=== PATIENT | male | born 1955 | race Caucasian/White ===

== ENCOUNTER 2019-02-23 21:39 | Emergency (ER) | payer OTHER ==
[2019-02-23] MEDS ORDERED: Aspirin 81 MG Tab.Chew PO ONE (21:55)
[2019-02-23] MEDS ORDERED: Aspirin 81 MG Tab.Chew ONE (21:56)
[2019-02-23] MEDS ORDERED: Nitroglycerin 0.4 MG Tab.SL ONE (21:56)
[2019-02-23] MEDS ORDERED: Sodium Chloride 0.9% 10 ML Syringe FLUSH PRN (21:57)
[2019-02-23] MEDS ORDERED: Nitroglycerin 0.4 MG Tab.SL SL PRN (21:57)
--- NOTE | 2019-02-23 22:04 | EDM.PDOC ---
ED HPI GENERAL MEDICAL PROBLEM - General Chief Complaint: Chest Pain Stated Complaint: CHEST PAIN Time Seen by Provider: 02/23/19 21:40 Source of Information: Reports: Patient History Limitations: Reports: No Limitations - History of Present Illness INITIAL COMMENTS - FREE TEXT/NARRATIVE: 63 YO WM presents to ER by private car with 30 minutes of substernal chest pain. Pt reports he was sitting watching TV when pain began. Pt reports associated dizziness and palpitations. Pt denies any shortness of breath, no nausea/vomiting, no diaphoresis. Pt reports smoking history of 45 pack years. Pt denies any current medications. Pt denies HTN, diabetes, hyperlipidemia but states he has a strong FH of CAD. Duration: Minutes: (30) Location: Reports: Chest Quality: Reports: Pressure Severity: Moderate Improves with: Reports: None Worsens with: Reports: None Associated Symptoms: Reports: Chest Pain. Denies: Cough, Diaphoresis, Fever/ Chills, Nausea/Vomiting, Shortness of Breath, Syncope Mid-Sternal Chest Pain Score (Numeric/FACES): 4 - Related Data Allergies Allergy/AdvReac Type Severity Reaction Status Date / Time codeine Allergy Cannot Verified 02/23/19 21:58 Remember Penicillins Allergy Cannot Verified 02/23/19 21:58 Remember Home Meds: Home Meds Naproxen Sodium [Aleve] 220 mg PO ASDIRECTED PRN 02/23/19 [History] ED ROS GENERAL - Review of Systems Review Of Systems: See Below Constitutional: Reports: No Symptoms HEENT: Reports: No Symptoms Respiratory: Reports: No Symptoms Cardiovascular: Reports: Chest Pain, Lightheadedness Endocrine: Reports: No Symptoms GI/Abdominal: Reports: No Symptoms : Reports: No Symptoms Musculoskeletal: Reports: No Symptoms Skin: Reports: No Symptoms Neurological: Reports: No Symptoms Psychiatric: Reports: No Symptoms Hematologic/Lymphatic: Reports: No Symptoms Immunologic: Reports: No Symptoms ED EXAM, GENERAL - Physical Exam Exam: See Below Exam Limited By: No Limitations General Appearance: Alert, WD/WN, No Apparent Distress Head: Atraumatic, Normocephalic Neck: Normal Inspection, Supple, Non-Tender, Full Range of Motion Respiratory/Chest: No Respiratory Distress, Lungs Clear, Normal Breath Sounds, No Accessory Muscle Use, Chest Non-Tender Cardiovascular: Normal Peripheral Pulses, Regular Rate, Rhythm, No Edema, No Gallop, No JVD, No Murmur, No Rub GI/Abdominal: Normal Bowel Sounds, Soft, Non-Tender, No Organomegaly, No Distention, No Abnormal Bruit, No Mass Back Exam: Normal Inspection, Full Range of Motion, NT Extremities: Normal Inspection, Normal Range of Motion, Non-Tender, Normal Capillary Refill, No Pedal Edema Neurological: Alert, Oriented, CN II-XII Intact, Normal Cognition, Normal Gait, Normal Reflexes, No Motor/Sensory Deficits Psychiatric: Normal Affect, Normal Mood Skin Exam: Warm, Dry, Intact, Normal Color, No Rash Lymphatic: No Adenopathy EKG INTERPRETATION EKG Date: 02/23/19 Time: 21:43 Rhythm: NSR Rate (Beats/Min): 84 [place]: Normal P-Wave: Present QRS: Normal ST-T: Elevated QT: Normal Comparison: NA - No Prior EKG Course - Vital Signs Last Recorded V/S: Last Vital Signs Temp 35.8 C 02/23/19 21:45 Pulse 107 H 02/23/19 21:45 Resp 18 02/23/19 21:45 BP 168/98 H 02/23/19 21:45 Pulse Ox 97 02/23/19 21:45 - Orders/Labs/Meds Orders: Active Orders 24 hr Category Date Time Status Cardiac Monitoring [RC] . DIRECTED Care 02/23/19 21:57 Ordered EKG Documentation Completion [RC] ASDIRECTED Care 02/23/19 21:58 Ordered Peripheral IV Care [RC] . DIRECTED Care 02/23/19 21:58 Ordered Chest 1V Frontal [CR] Stat Exams 02/23/19 21:57 Ordered CBC WITH AUTO DIFF [HEME] Stat Lab 02/23/19 21:57 Ordered CK W CKMB [CHEM] Stat Lab 02/23/19 21:57 Ordered COMPREHENSIVE METABOLIC PN,CMP [CHEM] Stat Lab 02/23/19 21:57 Ordered INR,PT,PROTHROMBIN TIME [COAG] Stat Lab 02/23/19 21:57 Ordered PTT,PARTIAL THROMBOPLSTIN TIME [COAG] Stat Lab 02/23/19 21:57 Ordered TROPONIN I [CHEM] Stat Lab 02/23/19 21:57 Ordered Nitroglycerin [Nitrostat] Med 02/23/19 21:57 Active 0.4 mg SL Q5M PRN Sodium Chloride 0.9% [Saline Flush] Med 02/23/19 21:57 Ordered 10 ml FLUSH Q8HR PRN Peripheral IV Insertion Adult [OM.PC] Routine Oth 02/23/19 21:57 Ordered EKG 12 Lead [EK] Routine Ther 02/23/19 21:57 Ordered Medication Orders Nitroglycerin (Nitrostat) 0.4 mg SL Q5M PRN PRN Reason: Chest Pain Sodium Chloride (Saline Flush) 10 ml FLUSH Q8HR PRN PRN Reason: keep vein open Meds: Medications Generic Name Dose Route Start Last Admin Trade Name Freq PRN Reason Stop Dose Admin Nitroglycerin 0.4 mg 02/23/19 21:57 Nitrostat SL Q5M PRN Chest Pain Sodium Chloride 10 ml 02/23/19 21:57 Saline Flush FLUSH Q8HR PRN keep vein open Discontinued Medications Generic Name Dose Route Start Last Admin Trade Name Freq PRN Reason Stop Dose Admin Aspirin Confirm 02/23/19 21:56 02/23/19 22:04 Aspirin Administered 02/23/19 21:57 Not Given Dose 324 mg .ROUTE .STK-MED ONE Aspirin 324 mg 02/23/19 21:55 Aspirin PO 02/23/19 21:56 ONETIME ONE Nitroglycerin Confirm 02/23/19 21:56 02/23/19 22:04 Nitrostat Administered 02/23/19 21:57 Not Given Dose 0.4 mg .ROUTE .STK-MED ONE Departure - Departure Time of Disposition: 22:10 Disposition: DC/Tfer to Acute Hospital 02 Reason for Transfer *Q: Primary PCI Indicated Condition: Critical Clinical Impression: Acute myocardial infarction Qualifiers: Myocardial infarction type: ST elevation myocardial infarction Forms: ED Department Discharge, Interfacility Transfer EMTALA - My Orders Last 24 Hours: My Active Orders 02/23/19 21:57 Cardiac Monitoring [RC] . DIRECTED Chest 1V Frontal [CR] Stat CBC WITH AUTO DIFF [HEME] Stat CK W CKMB [CHEM] Stat COMPREHENSIVE METABOLIC PN,CMP [CHEM] Stat INR,PT,PROTHROMBIN TIME [COAG] Stat PTT,PARTIAL THROMBOPLSTIN TIME [COAG] Stat TROPONIN I [CHEM] Stat Nitroglycerin [Nitrostat] 0.4 mg SL Q5M PRN Sodium Chloride 0.9% [Saline Flush] 10 ml FLUSH Q8HR PRN Peripheral IV Insertion Adult [OM.PC] Routine EKG 12 Lead [EK] Routine 02/23/19 21:58 EKG Documentation Completion [RC] ASDIRECTED Peripheral IV Care [RC] . DIRECTED - Assessment/Plan Last 24 Hours: My Active Orders 02/23/19 21:57 Cardiac Monitoring [RC] . DIRECTED Chest 1V Frontal [CR] Stat CBC WITH AUTO DIFF [HEME] Stat CK W CKMB [CHEM] Stat COMPREHENSIVE METABOLIC PN,CMP [CHEM] Stat INR,PT,PROTHROMBIN TIME [COAG] Stat PTT,PARTIAL THROMBOPLSTIN TIME [COAG] Stat TROPONIN I [CHEM] Stat Nitroglycerin [Nitrostat] 0.4 mg SL Q5M PRN Sodium Chloride 0.9% [Saline Flush] 10 ml FLUSH Q8HR PRN Peripheral IV Insertion Adult [OM.PC] Routine EKG 12 Lead [EK] Routine 02/23/19 21:58 EKG Documentation Completion [RC] ASDIRECTED Peripheral IV Care [RC] . DIRECTED Assessment:: 1. STEMI Plan: 1. Transfer to [facility]- [facility] accepting 2. supportive care 3. nitro/ASA/O2/Brilinta 180mg PO QD 4. chest pain free at this time so Dr Conrad stated to hold throbolytics
[2019-02-23] MEDS ORDERED: Ticagrelor 90 MG Tab PO ONE (22:15)
[2019-02-23] MEDS ORDERED: Sodium Chloride 0.9% 1,000 ML IV SCH (22:20)
[2019-02-23 22:42] LABS: ANION GAP 23.8 mmol/L (5-15); CHLORIDE,CL 105 mmol/L (98-115); SODIUM,NA 147 mmol/L (136-145)
== END 2019-02-23 22:30 ==
LOC: KA.ED 21:39
DX: I21.3 ST elevation (STEMI) myocardial infarction of unspecified site (principal); Z88.0 Allergy status to penicillin; Z88.5 Allergy status to narcotic agent
CPT/HCPCS: 80053; 82550; 82553; 84484; 85025; 85610; 85730; 93005; 99285-25; A9270-GY

== ENCOUNTER 2019-04-11 13:59 | Emergency (ER) | payer OTHER ==
--- NOTE | 2019-04-11 14:34 | EDM.PDOC ---
ED HPI GENERAL MEDICAL PROBLEM - General Stated Complaint: SOB Time Seen by Provider: 04/11/19 14:12 Source of Information: Reports: Patient History Limitations: Reports: No Limitations - History of Present Illness INITIAL COMMENTS - FREE TEXT/NARRATIVE: Patient presents with dyspnea that is becoming more severe. 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 He denies chest tightness or pressure. 6 weeks ago he had an NM with stents placed. At that time he had chest tightness but not since the stents. He has smoked for 50+ years but has cut down quite a bit he says, used to be 3 ppd now less than 1 ppd. - Related Data Allergies Allergy/AdvReac Type Severity Reaction Status Date / Time codeine Allergy Cannot Verified 04/11/19 15:56 Remember Penicillins Allergy Cannot Verified 04/11/19 15:56 Remember Home Meds: Home Meds Acetaminophen [Tylenol] 650 mg PO Q4H PRN 04/11/19 [History] Aspirin 81 mg PO BID 04/11/19 [History] Cyanocobalamin (Vitamin B-12) [Vitamin B-12] 250 mcg PO DAILY 04/11/19 [History] Folic Acid 1 mg PO DAILY 04/11/19 [History] Metoprolol Tartrate 12.5 mg PO BID 04/11/19 [History] Nitroglycerin 0.4 mg SL Q5M PRN 04/11/19 [History] Thiamine HCl 100 mg PO DAILY 04/11/19 [History] Ticagrelor [Brilinta] 90 mg PO BID 04/11/19 [History] atorvaSTATin Calcium [Atorvastatin Calcium] 80 mg PO BEDTIME 04/11/19 [History] ED ROS GENERAL - Review of Systems Review Of Systems: See Below Constitutional: Denies: Fever, Weakness, Diaphoresis HEENT: Denies: Throat Pain, Vision Change Respiratory: Reports: Shortness of Breath. Denies: Cough Cardiovascular: Denies: Chest Pain, Lightheadedness, Syncope Endocrine: Reports: No Symptoms GI/Abdominal: Denies: Abdominal Pain, Vomiting : Reports: No Symptoms Musculoskeletal: Denies: Neck Pain, Shoulder Pain, Arm Pain, Back Pain, Hand Pain, Leg Pain Skin: Denies: Cyanosis, Jaundice, Mottled, Pallor, Diaphoresis Neurological: Denies: Confusion, Dizziness, Seizure, Syncope, Trouble Speaking, Difficulty Walking Psychiatric: Denies: Agitation, Anxiety, Confusion ED EXAM, GENERAL - Physical Exam Exam: See Below Exam Limited By: No Limitations General Appearance: Alert, WD/WN, No Apparent Distress Eye Exam: Bilateral Eye: EOMI, Normal Inspection, PERRL Ears: Normal External Exam, Hearing Grossly Normal Nose: Normal Inspection, No Blood Throat/Mouth: Normal Inspection, Normal Lips, Normal Voice, No Airway Compromise Head: Atraumatic, Normocephalic Neck: Normal Inspection, Supple, Non-Tender, Full Range of Motion. No: Carotid Bruit Respiratory/Chest: No Respiratory Distress, No Accessory Muscle Use, Other ( lungs sound pretty good, just slight wheeze left middle lung) Cardiovascular: Normal Peripheral Pulses, Regular Rate, Rhythm, No Edema, No Gallop, No JVD, No Murmur Peripheral Pulses: 2+: Carotid (L), Carotid (R), Radial (L), Radial (R), Posterior Tibial (L), Posterior Tibial (R) GI/Abdominal: Normal Bowel Sounds, Soft, Non-Tender, No Organomegaly, No Distention Back Exam: Normal Inspection, Full Range of Motion Extremities: Normal Inspection, Normal Range of Motion, Non-Tender, No Pedal Edema Neurological: Alert, Oriented, Normal Cognition, No Motor/Sensory Deficits Psychiatric: Normal Affect, Normal Mood Skin Exam: Warm, Dry, Intact, Normal Color, No Rash Course - Orders/Labs/Meds Orders: Active Orders 24 hr Category Date Time Status EKG Documentation Completion [RC] ASDIRECTED Care 04/11/19 14:27 Ordered RT Aerosol Therapy [RC] ASDIRECTED Care 04/11/19 15:21 Ordered EKG 12 Lead [EK] Routine Ther 04/11/19 14:26 Ordered Labs: Laboratory Tests 04/11/19 04/11/19 Range/Units 14:34 14:34 WBC 4.47 L (5.00-10.00) 10^3/uL RBC 4.38 L (4.50-6.00) 10^6/uL Hgb 15.4 (13.0-17.0) g/dL Hct 45.2 (40.0-52.0) % MCV 103.2 H (82.0-92.0) fL MCH 35.2 H (27.0-31.0) pg MCHC 34.1 (32.0-36.0) g/dL RDW 14.4 (11.5-14.5) % Plt Count 133 L (150-400) 10^3/uL MPV 11.2 H (7.4-10.4) fL Immature Gran % (Auto) 0.0 (0.0-5.0) % Neut % (Auto) 57.9 (50.0-70.0) % Lymph % (Auto) 21.0 (20.0-40.0) % [place] % (Auto) 14.1 H (2.0-8.0) % Eos % (Auto) 6.3 H (1.0-3.0) % Baso % (Auto) 0.7 (0.0-1.0) % Immature Gran # (Auto) 0.00 (0.00-0.50) 10^3/uL Neut # (Auto) 2.59 (2.50-7.00) 10^3/uL Lymph # (Auto) 0.94 L (1.00-4.00) 10^3/uL [place] # (Auto) 0.63 (0.10-0.80) 10^3/uL Eos # (Auto) 0.28 (0.10-0.30) 10^3/uL Baso # (Auto) 0.03 (0.00-0.10) 10^3/uL Sodium 146 H (136-145) mmol/L Potassium 4.8 (3.3-5.3) mmol/L Chloride 109 (98-115) mmol/L Carbon Dioxide 27.5 (21.0-32.0) mmol/L Anion Gap 14.3 (5-15) mmol/L BUN 13 (6-25) mg/dL Creatinine 0.92 (0.51-1.17) mg/dL Est Cr Clr Drug Dosing TNP Estimated GFR (MDRD) > 60 mL/min Glucose 95 (75 - 99) mg/dL Calcium 9.1 (8.7-10.3) mg/dL Troponin I 0.05 (0.00-0.070) ng/mL Meds: Medications Discontinued Medications Generic Name Dose Route Start Last Admin Trade Name Freq PRN Reason Stop Dose Admin Albuterol/Ipratropium 3 ml 04/11/19 15:21 04/11/19 15:24 Duoneb 3.0-0.5 Mg/3 Ml NEB 04/11/19 15:22 3 ml ONETIME ONE Administration Albuterol/Ipratropium Confirm 04/11/19 15:22 Duoneb 3.0-0.5 Mg/3 Ml Administered 04/11/19 15:23 Dose 3 ml .ROUTE .STK-MED ONE Aspirin 324 mg 04/11/19 14:26 04/11/19 14:40 Aspirin PO 04/11/19 14:27 324 mg ONETIME ONE Administration - Re-Assessments/Exams Free Text/Narrative Re-Assessment/Exam: 04/11/19 15:22 EKG shows no acute change. Trop is 0.05 CXR shows no infiltrates. 04/11/19 15:54 Duoneb provided significant improvement in activity tolerance (eg. walking halls in hospital) today. I discussed this with his PCP, CHARLIE Beth who advised starting on Duoneb and Pulmicort nebs and following with her in clinic on Wednesday. Discussed findings and plan with patient who agrees. Pt discharged to home in stable condition. Departure - Departure Time of Disposition: 15:50 Disposition: Home, Self-Care 01 Condition: Good Clinical Impression: COPD (chronic obstructive pulmonary disease) Qualifiers: COPD type: COPD with acute exacerbation Qualified Code(s): J44.1 - Chronic obstructive pulmonary disease with (acute) exacerbation - Discharge Information Instructions: How to Use a Nebulizer, Adult Referrals: Ceci Velasquez PA-C [Primary Care Provider] - Additional Instructions: 1. Drink 8 cups of water daily. 2. Use the Duoneb and Pulmicort neb as directed. 3. Follow up with Ceci in clinic on Wednesday. Call to schedule. 4. Return to ER as needed. - My Orders Last 24 Hours: My Active Orders 04/11/19 14:26 EKG 12 Lead [EK] Routine 04/11/19 14:27 EKG Documentation Completion [RC] ASDIRECTED 04/11/19 15:21 RT Aerosol Therapy [RC] ASDIRECTED - Assessment/Plan Last 24 Hours: My Active Orders 04/11/19 14:26 EKG 12 Lead [EK] Routine 04/11/19 14:27 EKG Documentation Completion [RC] ASDIRECTED 04/11/19 15:21 RT Aerosol Therapy [RC] ASDIRECTED
[2019-04-11] MEDS: Aspirin 81 MG Tab.Chew PO ONE (14:40)
--- NOTE | 2019-04-11 15:04 | CR ---
[id number] RAD/RAD Chest PA And Lateral EXAM: RAD Chest PA And Lateral INDICATION: DYSPNEA. COMPARISON: August 11, 2018. DISCUSSION: Cardiomediastinal silhouette is normal in size and contour. No infiltrate, effusion, pneumothorax, or edema. Pulmonary hyperinflation. IMPRESSION: No acute cardiopulmonary abnormality. Norm Emerson DO 04/11/19 1502 Thank you for allowing us to participate in the care of your patient.
[2019-04-11 15:10] LABS: ANION GAP 14.3 mmol/L (5-15); CHLORIDE,CL 109 mmol/L (98-115); SODIUM,NA 146 mmol/L (136-145)
[2019-04-11] MEDS: Albuterol/Ipratropium 3.0-0.5 MG/3 ML Neb Soln NEB ONE (15:24)
[2019-04-11] MEDS: Albuterol/Ipratropium 3.0-0.5 MG/3 ML Neb Soln ONE (15:30)
== END 2019-04-11 16:05 | disposition home or self-care (01) ==
LOC: KA.ED 13:59
DX: J44.1 Chronic obstructive pulmonary disease with (acute) exacerbation (principal); Z88.5 Allergy status to narcotic agent; Z88.0 Allergy status to penicillin; Z79.899 Other long term (current) drug therapy; Z79.82 Long term (current) use of aspirin
CPT/HCPCS: 36415; 71046; 80048; 84484; 85025; 93005; 94640; 99285-25; A9270-GY; J7620-GY

== ENCOUNTER 2019-11-13 08:10 | Emergency (ER) | payer OTHER ==
[2019-11-13] MEDS ORDERED: Sodium Chloride 0.9% 10 ML Syringe FLUSH PRN (08:22)
[2019-11-13] MEDS ORDERED: GI Cocktail 45 ML BOTTLE PO ONE (08:40)
--- NOTE | 2019-11-13 08:48 | EDM.PDOC ---
ED HPI GENERAL MEDICAL PROBLEM - General Chief Complaint: Chest Pain Stated Complaint: CHEST PAIN Time Seen by Provider: 11/13/19 08:31 Source of Information: Reports: Patient History Limitations: Reports: No Limitations - History of Present Illness INITIAL COMMENTS - FREE TEXT/NARRATIVE: Patient presents with chest pain that started at 5:30 pm while watching a football game last night and bothered him all night. This morning he called the clinic to make an appointment there and was told he should go to ER. He describes the pain as in the same area as when he had a heart attack last January but this feels like a really bad heartburn, whereas last January it felt very tight. He ended up with two stents. He says he smokes 1.5 ppd and typically drink 6 beers/day although last evening with the game he drank 12-pack and a half as well as another beer this morning. Since the DC he is taking Brilinta. chest pain Pain Score (Numeric/FACES): 2 - Related Data Allergies Allergy/AdvReac Type Severity Reaction Status Date / Time codeine Allergy Cannot Verified 11/13/19 08:21 Remember Penicillins Allergy Cannot Verified 11/13/19 08:21 Remember Home Meds: Home Meds Acetaminophen [Tylenol] 650 mg PO Q4H PRN 04/11/19 [History] Aspirin 81 mg PO DAILY 04/11/19 [History] Cyanocobalamin (Vitamin B-12) [Vitamin B-12] 250 mcg PO DAILY 04/11/19 [History] Folic Acid 1 mg PO DAILY 04/11/19 [History] Nitroglycerin 0.4 mg SL Q5M PRN 04/11/19 [History] Thiamine HCl 100 mg PO DAILY 04/11/19 [History] Ticagrelor [Brilinta] 90 mg PO DAILY 04/11/19 [History] Past Medical History HEENT History: Reports: Impaired Vision Other HEENT History: glasses Cardiovascular History: Reports: DC Respiratory History: Reports: Other (See Below) Other Respiratory History: used to smoke 3 packs a day - Past Surgical History Cardiovascular Surgical History: Reports: Coronary Artery Stent Social & Family History - Family History Family Medical History: Noncontributory ED ROS GENERAL - Review of Systems Review Of Systems: See Below Constitutional: Denies: Fever, Chills, Weakness, Fatigue, Diaphoresis HEENT: Denies: Ear Pain, Throat Pain, Vision Change Respiratory: Reports: Shortness of Breath Cardiovascular: Reports: Chest Pain. Denies: Lightheadedness, Syncope GI/Abdominal: Denies: Abdominal Pain, Diarrhea, Vomiting : Denies: Dysuria, Flank Pain Musculoskeletal: Denies: Neck Pain, Shoulder Pain, Arm Pain, Back Pain, Hand Pain, Leg Pain, Foot Pain Skin: Denies: Cyanosis, Jaundice, Mottled, Pallor, Diaphoresis Neurological: Denies: Confusion, Dizziness, Headache, Seizure, Syncope, Trouble Speaking, Difficulty Walking Psychiatric: Denies: Agitation, Anxiety, Confusion ED EXAM, GENERAL - Physical Exam Exam: See Below Exam Limited By: No Limitations General Appearance: Alert, WD/WN, No Apparent Distress Eye Exam: Bilateral Eye: EOMI, Normal Inspection, PERRL Ears: Normal External Exam, Hearing Grossly Normal Nose: Normal Inspection, No Blood Throat/Mouth: Normal Inspection, Normal Lips, Normal Voice, No Airway Compromise Head: Atraumatic, Normocephalic Neck: Normal Inspection, Supple, Non-Tender, Full Range of Motion. No: Carotid Bruit Respiratory/Chest: No Respiratory Distress, Lungs Clear, Normal Breath Sounds Cardiovascular: Normal Peripheral Pulses, Regular Rate, Rhythm, No Edema, No Gallop, No JVD, No Murmur GI/Abdominal: Soft, Non-Tender, No Organomegaly, No Distention Back Exam: Normal Inspection, Full Range of Motion. No: CVA Tenderness (L), CVA Tenderness (R) Extremities: Normal Inspection, Normal Range of Motion, Non-Tender, No Pedal Edema Neurological: Alert, Oriented, Normal Cognition, No Motor/Sensory Deficits Psychiatric: Normal Affect, Normal Mood Skin Exam: Warm, Dry, Intact, Normal Color, No Rash Course - Vital Signs Last Recorded V/S: Last Vital Signs Temp 97.1 F 11/13/19 08:15 Pulse 93 11/13/19 09:29 Resp 22 H 11/13/19 09:29 BP 118/75 11/13/19 09:29 Pulse Ox 92 L 11/13/19 09:29 - Orders/Labs/Meds Orders: Active Orders 24 hr Category Date Time Status EKG Documentation Completion [RC] ASDIRECTED Care 11/13/19 08:22 Active Peripheral IV Care [RC] . DIRECTED Care 11/13/19 08:22 Active Nitroglycerin [Nitrostat] Med 11/13/19 09:08 Ordered 0.4 mg SL Q5M PRN Sodium Chloride 0.9% [Saline Flush] Med 11/13/19 08:22 Active 10 ml FLUSH Q8HR PRN Peripheral IV Insertion Adult [OM.PC] Routine Oth 11/13/19 08:22 Ordered Medication Orders Nitroglycerin (Nitrostat) 0.4 mg SL Q5M PRN PRN Reason: Chest Pain Last Admin: 11/13/19 09:11 Dose: 0.4 mg Sodium Chloride (Saline Flush) 10 ml FLUSH Q8HR PRN PRN Reason: keep vein open Last Admin: 11/13/19 08:30 Dose: 10 ml Labs: Laboratory Tests 11/13/19 11/13/19 11/13/19 Range/Units 08:00 08:30 08:30 WBC 7.84 (5.00-10.00) 10^3/uL RBC 4.36 L (4.50-6.00) 10^6/uL Hgb 15.2 (13.0-17.0) g/dL Hct 45.2 (40.0-52.0) % MCV 103.7 H (82.0-92.0) fL MCH 34.9 H (27.0-31.0) pg MCHC 33.6 (32.0-36.0) g/dL RDW 13.5 (11.5-14.5) % Plt Count 119 L (150-400) 10^3/uL MPV 11.7 H (7.4-10.4) fL Immature Gran % (Auto) 0.1 (0.0-5.0) % Neut % (Auto) 62.7 (50.0-70.0) % Lymph % (Auto) 19.6 L (20.0-40.0) % [place] % (Auto) 11.1 H (2.0-8.0) % Eos % (Auto) 5.9 H (1.0-3.0) % Baso % (Auto) 0.6 (0.0-1.0) % Immature Gran # (Auto) 0.01 (0.00-0.50) 10^3/uL Neut # (Auto) 4.91 (2.50-7.00) 10^3/uL Lymph # (Auto) 1.54 (1.00-4.00) 10^3/uL [place] # (Auto) 0.87 H (0.10-0.80) 10^3/uL Eos # (Auto) 0.46 H (0.10-0.30) 10^3/uL Baso # (Auto) 0.05 (0.00-0.10) 10^3/uL Sodium 140 (136-145) mmol/L Potassium 3.6 (3.3-5.3) mmol/L Chloride 105 (98-115) mmol/L Carbon Dioxide 22.8 (21.0-32.0) mmol/L Anion Gap 15.8 H (5-15) mmol/L BUN 8 (6-25) mg/dL Creatinine 0.69 (0.51-1.17) mg/dL Est Cr Clr Drug Dosing 111.00 mL/min Estimated GFR (MDRD) > 60 mL/min Glucose 85 (75 - 99) mg/dL Calcium 8.3 L (8.7-10.3) mg/dL Total Bilirubin 0.7 (0.2-1.0) mg/dL AST 34 (15-37) U/L ALT 43 (12-78) U/L Alkaline Phosphatase 64 (46-116) IU/L Troponin I 0.07 (0.00-0.070) ng/mL Total Protein 7.5 (6.4-8.2) g/dL Albumin 3.81 (3.00-4.80) g/dL Ethyl Alcohol 223 H* (NONE DETECTED) mg/dL Meds: Medications Generic Name Dose Route Start Last Admin Trade Name Freq PRN Reason Stop Dose Admin Nitroglycerin 0.4 mg 11/13/19 09:08 11/13/19 09:11 Nitrostat SL 0.4 mg Q5M PRN Administration Chest Pain Sodium Chloride 10 ml 11/13/19 08:22 11/13/19 08:30 Saline Flush FLUSH 10 ml Q8HR PRN Administration keep vein open Discontinued Medications Generic Name Dose Route Start Last Admin Trade Name Freq PRN Reason Stop Dose Admin Al Hydroxide/Mg Hydroxide 45 ml 11/13/19 08:40 11/13/19 09:01 Gi Cocktail PO 11/13/19 08:41 45 ml ONETIME ONE Administration - Re-Assessments/Exams Free Text/Narrative Re-Assessment/Exam: 11/13/19 09:09 Pain is 90% gone after the GI cocktail patient says. EKG looks good. I see a 1 mm elevation in S-T segment at lead V3. Still waiting on troponin which should be adequate since pain started 15 hours prior. 11/13/19 10:54 Troponin is 0.07. I discussed case with Dr. Patino, car dryer at [facility] who says/confirms it is not cardiac if troponin is that low after 15 hours. I discussed findings and recommendations with patient. He continues to be completely pain free. I also informed him that he needs to get a ride to leave since his alcohol level is too high. He has tried to call his but says if she isn't available he can walk to where he is going. I'm not sure how far that is but temperatures outside today are at least better than the past few days. Will encourage him to get ride although he drove himself here. Departure - Departure Time of Disposition: 10:54 Disposition: Home, Self-Care 01 Condition: Good Clinical Impression: Heartburn Alcohol intoxication Qualifiers: Complication of substance-induced condition: uncomplicated Qualified Code(s): F10.920 - Alcohol use, unspecified with intoxication, uncomplicated Instructions: Heartburn, [id number] Referrals: Nuris Reyes MD [Primary Care Provider] - Forms: ED Department Discharge, ED Return to Work/School Form Additional Instructions: 1. No driving for at least 12 hours. 2. Drink 8 cups of water daily. 3. Follow up with DR. Watkins within 48 hours for recheck, sooner if any worsening or other problems. Sepsis Event Note - Focused Exam Vital Signs: Vital Signs Temp Pulse Resp BP BP Pulse Ox 11/13/19 09:29 93 22 H 118/75 92 L 11/13/19 09:21 100 110/57 L 11/13/19 09:11 135/78 11/13/19 09:02 87 15 135/78 96 11/13/19 08:45 83 15 147/74 H 94 L 11/13/19 08:30 82 16 145/93 H 95 11/13/19 08:15 97.1 F 82 22 H 142/85 H 97 Date Exam was Performed: 11/13/19 Time Exam was Performed: 09:59 - My Orders Last 24 Hours: My Active Orders 11/13/19 08:22 EKG Documentation Completion [RC] ASDIRECTED Peripheral IV Care [RC] . DIRECTED Sodium Chloride 0.9% [Saline Flush] 10 ml FLUSH Q8HR PRN Peripheral IV Insertion Adult [OM.PC] Routine 11/13/19 09:08 Nitroglycerin [Nitrostat] 0.4 mg SL Q5M PRN - Assessment/Plan Last 24 Hours: My Active Orders 11/13/19 08:22 EKG Documentation Completion [RC] ASDIRECTED Peripheral IV Care [RC] . DIRECTED Sodium Chloride 0.9% [Saline Flush] 10 ml FLUSH Q8HR PRN Peripheral IV Insertion Adult [OM.PC] Routine 11/13/19 09:08 Nitroglycerin [Nitrostat] 0.4 mg SL Q5M PRN
--- NOTE | 2019-11-13 08:54 | CR ---
[id number] RAD/RAD Chest PA or AP 1V EXAM: SINGLE VIEW CHEST. INDICATION: CHEST PAIN COMPARISON: CORRELATION IS MADE WITH THE EXAM OF MAY 29, 2019 FINDINGS: The lungs are clear and slightly hyperaerated The cardiomediastinal contour is stable IMPRESSION: AIRWAY DISEASE Brennen Lindquist MD 11/13/19 0853 Thank you for allowing us to participate in the care of your patient.
[2019-11-13] MEDS ORDERED: Nitroglycerin 0.4 MG Tab.SL SL PRN (09:08)
[2019-11-13 09:19] LABS: ANION GAP 15.8 mmol/L (5-15); CHLORIDE,CL 105 mmol/L (98-115); SODIUM,NA 140 mmol/L (136-145)
== END 2019-11-13 11:10 | disposition home or self-care (01) ==
LOC: KA.ED 08:10
DX: R12 Heartburn (principal); F10.120 Alcohol abuse with intoxication, uncomplicated; I25.2 Old myocardial infarction; Z95.5 Presence of coronary angioplasty implant and graft; F17.210 Nicotine dependence, cigarettes, uncomplicated; Z88.0 Allergy status to penicillin; Z88.5 Allergy status to narcotic agent; Y90.7 Blood alcohol level of 200-239 mg/100 ml
CPT/HCPCS: 36415; 71045; 80053; 84484; 85025; 93005; 99285-25; A9270-GY; G0480

== ENCOUNTER 2020-02-26 08:15 | Emergency (ER) | payer OTHER ==
[2020-02-26] MEDS ORDERED: Aspirin 81 MG Tab.Chew PO ONE (08:25)
[2020-02-26] MEDS ORDERED: Sodium Chloride 0.9% 10 ML Syringe FLUSH PRN (08:26)
--- NOTE | 2020-02-26 08:56 | EDM.PDOC ---
ED HPI GENERAL MEDICAL PROBLEM - General Chief Complaint: Chest Pain Time Seen by Provider: 02/26/20 08:35 Source of Information: Reports: Patient History Limitations: Reports: No Limitations - History of Present Illness INITIAL COMMENTS - FREE TEXT/NARRATIVE: Patient presents with a feeling of heart pounding that started about 50 minutes ago (0750). He had just gotten to work. He says now the feeling is gone but he feels exhausted. Yesterday he felt fine and did quite a bit of yard work ( raking, weed-eating). One year ago he had an OH that started with pressure in the chest and also felt heart pounding similar to today. Today there was no pressure. He took Brilinta for 10 months but stopped two months ago due to nosebleeds without informing his doctor. He has nitro but has never used it. He reduced tobacco use but still smokes 1 ppd (50 years). We gave ASA 324mg on ER arrival. - Related Data Allergies Allergy/AdvReac Type Severity Reaction Status Date / Time codeine Allergy Cannot Verified 02/26/20 08:32 Remember Penicillins Allergy Cannot Verified 02/26/20 08:32 Remember Home Meds: Home Meds Acetaminophen [Tylenol] 325 - 650 mg PO Q4H PRN 04/11/19 [History] Aspirin 81 mg PO DAILY 04/11/19 [History] Cyanocobalamin (Vitamin B-12) [Vitamin B-12] 250 mcg PO DAILY 04/11/19 [History] Folic Acid 1 mg PO DAILY 04/11/19 [History] Nitroglycerin 0.4 mg SL Q5M PRN 04/11/19 [History] Thiamine HCl 100 mg PO DAILY 04/11/19 [History] Escitalopram Oxalate [Lexapro] 10 mg PO DAILY 02/26/20 [History] Metoprolol Tartrate 12.5 mg PO BID 02/26/20 [History] atorvaSTATin [Lipitor] 80 mg PO BEDTIME 02/26/20 [History] Past Medical History HEENT History: Reports: Impaired Vision Other HEENT History: glasses Cardiovascular History: Reports: OH Respiratory History: Reports: Other (See Below) Other Respiratory History: used to smoke 3 packs a day Psychiatric History: Reports: Addiction Hematologic History: Reports: B12 Deficiency, Folic Acid - Past Surgical History Cardiovascular Surgical History: Reports: Coronary Artery Stent Social & Family History - Family History Family Medical History: Noncontributory - Tobacco Use Smoking Status *Q: Current Every Day Smoker Years of Tobacco use: 50 Packs/Tins Daily: 1 - Caffeine Use Caffeine Use: Reports: Coffee - Alcohol Use Days Per Week of Alcohol Use: 7 Number of Drinks Per Day: 6 Total Drinks Per Week: 42 Date of Last Drink: 02/26/20 - Recreational Drug Use Recreational Drug Use: Yes Drug Use in Last 12 Months: No Recreational Drug Type: Reports: Marijuana/Hashish ED ROS GENERAL - Review of Systems Review Of Systems: See Below Constitutional: Reports: Fatigue. Denies: Fever, Chills, Malaise, Weakness, Diaphoresis HEENT: Denies: Ear Pain, Throat Pain, Vision Change Respiratory: Reports: Cough (cough), Sputum (a little the last few months). Denies: Shortness of Breath Cardiovascular: Reports: Palpitations. Denies: Chest Pain, Lightheadedness, Syncope Endocrine: Reports: Fatigue GI/Abdominal: Denies: Abdominal Pain, Nausea, Vomiting : Denies: Dysuria, Flank Pain Musculoskeletal: Denies: Neck Pain, Shoulder Pain, Arm Pain, Back Pain, Hand Pain Skin: Denies: Cyanosis, Jaundice, Mottled, Pallor, Diaphoresis Neurological: Denies: Confusion, Dizziness, Headache, Seizure, Syncope, Trouble Speaking, Difficulty Walking Psychiatric: Denies: Agitation, Anxiety, Confusion ED EXAM, GENERAL - Physical Exam Exam: See Below Exam Limited By: No Limitations General Appearance: Alert, WD/WN, No Apparent Distress Eye Exam: Bilateral Eye: EOMI, Normal Inspection, PERRL Ears: Normal External Exam, Hearing Grossly Normal Nose: Normal Inspection, No Blood Throat/Mouth: Normal Inspection, Normal Lips, Normal Voice, No Airway Compromise Head: Atraumatic, Normocephalic Neck: Normal Inspection, Supple, Non-Tender, Full Range of Motion Respiratory/Chest: No Respiratory Distress, Lungs Clear, Normal Breath Sounds, No Accessory Muscle Use Cardiovascular: Regular Rate, Rhythm, No Murmur Peripheral Pulses: 0: Radial (L) (cut left wrist badly several years ago in a glass aquarium that severed most of the vessels), 2+: Carotid (L), Carotid (R), Radial (R) GI/Abdominal: Normal Bowel Sounds, Soft, Non-Tender, No Organomegaly, No Distention Back Exam: Normal Inspection, Full Range of Motion Extremities: Normal Inspection, Normal Range of Motion Neurological: Alert, Oriented, Normal Cognition, No Motor/Sensory Deficits Psychiatric: Normal Affect, Normal Mood Skin Exam: Warm, Dry, Intact, Normal Color, No Rash Course - Vital Signs Last Recorded V/S: Last Vital Signs Temp 96.4 F L 02/26/20 08:27 Pulse 81 02/26/20 08:27 Resp 27 H 02/26/20 08:27 BP 168/77 H 02/26/20 08:27 Pulse Ox 98 02/26/20 08:27 - Orders/Labs/Meds Orders: Active Orders 24 hr Category Date Time Status EKG Documentation Completion [RC] ASDIRECTED Care 02/26/20 08:26 Active Peripheral IV Care [RC] . DIRECTED Care 02/26/20 08:26 Active Sodium Chloride 0.9% [Saline Flush] Med 02/26/20 08:26 Active 10 ml FLUSH Q8HR PRN Peripheral IV Insertion Adult [OM.PC] Routine Oth 02/26/20 08:26 Ordered Medication Orders Sodium Chloride (Saline Flush) 10 ml FLUSH Q8HR PRN PRN Reason: keep vein open Labs: Laboratory Tests 02/26/20 02/26/20 02/26/20 Range/Units 08:25 08:25 12:40 WBC 5.53 (5.00-10.00) 10^3/uL RBC 4.54 (4.50-6.00) 10^6/uL Hgb 15.9 (13.0-17.0) g/dL Hct 46.4 (40.0-52.0) % MCV 102.2 H (82.0-92.0) fL MCH 35.0 H (27.0-31.0) pg MCHC 34.3 (32.0-36.0) g/dL RDW 13.0 (11.5-14.5) % Plt Count 116 L (150-400) 10^3/uL MPV 11.9 H (7.4-10.4) fL Immature Gran % (Auto) 0.0 (0.0-5.0) % Neut % (Auto) 56.9 (50.0-70.0) % Lymph % (Auto) 25.5 (20.0-40.0) % [place] % (Auto) 10.7 H (2.0-8.0) % Eos % (Auto) 5.8 H (1.0-3.0) % Baso % (Auto) 1.1 H (0.0-1.0) % Immature Gran # (Auto) 0.00 (0.00-0.50) 10^3/uL Neut # (Auto) 3.15 (2.50-7.00) 10^3/uL Lymph # (Auto) 1.41 (1.00-4.00) 10^3/uL [place] # (Auto) 0.59 (0.10-0.80) 10^3/uL Eos # (Auto) 0.32 H (0.10-0.30) 10^3/uL Baso # (Auto) 0.06 (0.00-0.10) 10^3/uL Sodium 141 (136-145) mmol/L Potassium 3.8 (3.3-5.3) mmol/L Chloride 104 (98-115) mmol/L Carbon Dioxide 24.7 (21.0-32.0) mmol/L Anion Gap 16.1 H (5-15) mmol/L BUN 12 (6-25) mg/dL Creatinine 0.84 (0.51-1.17) mg/dL Est Cr Clr Drug Dosing 91.18 mL/min Estimated GFR (MDRD) > 60 mL/min Glucose 81 (75 - 99) mg/dL Calcium 8.8 (8.7-10.3) mg/dL Total Bilirubin 0.9 (0.2-1.0) mg/dL AST 59 H (15-37) U/L ALT 78 (12-78) U/L Alkaline Phosphatase 64 (46-116) IU/L Creatine Kinase 149 (26-276) U/L CK-MB (CK-2) 1.30 (0.00-4.30) ng/mL Troponin I < 0.04 0.08 H* (0.00-0.070) ng/mL Total Protein 8.2 (6.4-8.2) g/dL Albumin 4.25 (3.00-4.80) g/dL Meds: Medications Generic Name Dose Route Start Last Admin Trade Name Freq PRN Reason Stop Dose Admin Sodium Chloride 10 ml 02/26/20 08:26 Saline Flush FLUSH Q8HR PRN keep vein open Discontinued Medications Generic Name Dose Route Start Last Admin Trade Name Jose PRN Reason Stop Dose Admin Aspirin 324 mg 02/26/20 08:25 02/26/20 08:34 Aspirin PO 02/26/20 08:26 324 mg ONETIME ONE Administration Ticagrelor 180 mg 02/26/20 14:15 Brilinta PO 02/26/20 14:16 ONETIME ONE - Re-Assessments/Exams Free Text/Narrative Re-Assessment/Exam: 02/26/20 09:23 Labs, EKG, CXR okay. Patient asymptomatic except fatigue. Discussed findings with him. Will recheck troponin in 4 hours. 02/26/20 14:28 Patient has not had a return of any symptoms while in ER. Second troponin is 0.08; I discussed findings and treatment recommendations with patient who has been trying to call his but can't reach her. He tells me he won't go before he talks with her. I asked if I could at least call the housekeeping/laundry to get their recommendations and he was okay. I discussed with housekeeping/laundry at [facility] who advised heparin drip, Brilinta 180 mg po and ambulance transfer for angiogram now. I discussed these recommendations with the patient; he raised his voice and adamantly stated he was going home. I explained carefully the risks of not getting his heart attack treated by the housekeeping/laundry today. He still refused but accepted the Brilinta dose. I also explained to him that the housekeeping/laundry feels this is likely a result of stopping his Brilinta and that he needs to be taking it as directed. I stopped back a couple minutes later to see if he would change his mind but no. I told him that if the heart attack worsens he can come back to ER or can go to [facility]. Patient signed AMA forms and left. 02/26/20 14:39 Departure - Departure Time of Disposition: 14:27 Disposition: Against Medical Advice 07 Condition: Serious Clinical Impression: Palpitations with regular cardiac rhythm, NSTEMI (non-ST elevated myocardial infarction) Referrals: Ceci Velasquez PA-C [Primary Care Provider] - Forms: ED Department Discharge Sepsis Event Note - Evaluation Sepsis Screening Result: No Definite Risk - Focused Exam Vital Signs: Vital Signs Temp Pulse Resp BP Pulse Ox 02/26/20 08:27 96.4 F L 81 27 H 168/77 H 98 Date Exam was Performed: 02/26/20 Time Exam was Performed: 14:38 - My Orders Last 24 Hours: My Active Orders 02/26/20 08:26 EKG Documentation Completion [RC] ASDIRECTED Peripheral IV Care [RC] . DIRECTED Sodium Chloride 0.9% [Saline Flush] 10 ml FLUSH Q8HR PRN Peripheral IV Insertion Adult [OM.PC] Routine - Assessment/Plan Last 24 Hours: My Active Orders 02/26/20 08:26 EKG Documentation Completion [RC] ASDIRECTED Peripheral IV Care [RC] . DIRECTED Sodium Chloride 0.9% [Saline Flush] 10 ml FLUSH Q8HR PRN Peripheral IV Insertion Adult [OM.PC] Routine
[2020-02-26 09:02] LABS: ANION GAP 16.1 mmol/L (5-15); CHLORIDE,CL 104 mmol/L (98-115); SODIUM,NA 141 mmol/L (136-145)
--- NOTE | 2020-02-26 09:10 | CR ---
[id number] RAD/RAD Chest PA And Lateral EXAM: FRONTAL AND LATERAL CHEST INDICATION: HEART POUNDING. COMPARISON: November 13, 2019. DISCUSSION: The lateral view is limited by poor inspiration. Hyperinflation compatible with chronic obstructive pulmonary disease. No acute infiltrates are identified. Normal heart size. IMPRESSION: 1. No acute findings. Arden Benton MD 02/26/20 0908 Thank you for allowing us to participate in the care of your patient.
[2020-02-26] MEDS ORDERED: Ticagrelor 90 MG Tab PO ONE (14:15)
== END 2020-02-26 14:20 | disposition left against medical advice (07) ==
LOC: KA.ED 08:15
DX: I21.4 Non-ST elevation (NSTEMI) myocardial infarction (principal); F17.210 Nicotine dependence, cigarettes, uncomplicated; Z88.5 Allergy status to narcotic agent; Z88.0 Allergy status to penicillin; Z79.82 Long term (current) use of aspirin; Z79.899 Other long term (current) drug therapy; Z95.5 Presence of coronary angioplasty implant and graft
CPT/HCPCS: 36415; 71046; 80053; 82550; 82553; 84484; 85025; 93005; 99285; A9270

== ENCOUNTER 2021-03-06 16:41 | Emergency (ER) | payer OTHER ==
--- NOTE | 2021-03-06 17:14 | CR ---
[id number] RAD/RAD Chest PA And Lateral EXAM: RAD Chest PA And Lateral INDICATION: SHORTNESS OF BREATH. COMPARISON: None. DISCUSSION: Cardiomediastinal silhouette is normal in size and contour. No infiltrate, effusion, pneumothorax, or edema. Pulmonary hyperinflation. IMPRESSION: No acute cardiopulmonary abnormality. Norm Emerson DO 03/06/21 1713 Thank you for allowing us to participate in the care of your patient.
[2021-03-06] MEDS: Albuterol/Ipratropium 3.0-0.5 MG/3 ML Neb Soln NEB ONE (17:17)
--- NOTE | 2021-03-06 17:19 | EDM.PDOC ---
ED HPI GENERAL MEDICAL PROBLEM - General Chief Complaint: Respiratory Problem Stated Complaint: SOB Time Seen by Provider: 03/06/21 17:08 Source of Information: Reports: Patient History Limitations: Reports: No Limitations - History of Present Illness INITIAL COMMENTS - FREE TEXT/NARRATIVE: Patient presents with dyspnea. He says he has had it for months but lately has been worse and his albuterol inhaler isn't helping like usual. He uses it twice a day. He denies any known COPD, asthma or other chronic lung problems. He clinically has COPD in my opinion. He has smoked since age 9; 1 ppd now he says. He says he always has a cough and is not worse than usual. - Related Data Allergies Allergy/AdvReac Type Severity Reaction Status Date / Time codeine Allergy Cannot Verified 03/06/21 17:14 Remember Penicillins Allergy Cannot Verified 03/06/21 17:14 Remember Home Meds: Home Meds Acetaminophen [Tylenol] 325 - 650 mg PO Q4H PRN 04/11/19 [History] Aspirin 81 mg PO DAILY 04/11/19 [History] Cyanocobalamin (Vitamin B-12) [Vitamin B-12] 250 mcg PO DAILY 04/11/19 [History] Folic Acid 1 mg PO DAILY 04/11/19 [History] Nitroglycerin 0.4 mg SL Q5M PRN 04/11/19 [History] Thiamine HCl 100 mg PO DAILY 04/11/19 [History] atorvaSTATin [Lipitor] 80 mg PO BEDTIME 02/26/20 [History] Past Medical History HEENT History: Reports: Impaired Vision Other HEENT History: glasses Cardiovascular History: Reports: Hypertension, ID Respiratory History: Reports: Other (See Below) Other Respiratory History: 1 pack per day smoker used to do 3 packs Gastrointestinal History: Reports: None Genitourinary History: Reports: None Musculoskeletal History: Reports: None Neurological History: Reports: None Psychiatric History: Reports: Addiction Endocrine/Metabolic History: Reports: None Hematologic History: Reports: B12 Deficiency, Folic Acid Immunologic History: Reports: None Oncologic (Cancer) History: Reports: None Dermatologic History: Reports: None - Infectious Disease History Infectious Disease History: Reports: Chicken Pox - Past Surgical History Head Surgeries/Procedures: Reports: None Cardiovascular Surgical History: Reports: Coronary Artery Stent Other Cardiovascular Surgeries/Procedures: stents x2 in 2018 Respiratory Surgical History: Reports: None GI Surgical History: Reports: None Male Surgical History: Reports: None Musculoskeletal Surgical History: Reports: Other (See Below) Other Musculoskeletal Surgeries/Procedures:: left wrist surgical repair after falling through fish tank. Social & Family History - Family History Family Medical History: No Pertinent Family History - Tobacco Use Tobacco Use Status *Q: Current Every Day Tobacco User Years of Tobacco use: 50 Packs/Tins Daily: 1 - Caffeine Use Caffeine Use: Reports: Coffee - Recreational Drug Use Recreational Drug Use: No ED ROS GENERAL - Review of Systems Review Of Systems: See Below Constitutional: Denies: Fever, Chills, Malaise, Weakness HEENT: Denies: Ear Pain, Throat Pain, Vision Change Respiratory: Reports: Shortness of Breath, Cough Cardiovascular: Reports: Other (had two stents placed 3 years ago). Denies: Chest Pain, Lightheadedness, Syncope GI/Abdominal: Denies: Abdominal Pain, Diarrhea, Vomiting : Denies: Dysuria, Flank Pain Musculoskeletal: Reports: No Symptoms Skin: Denies: Cyanosis, Jaundice, Mottled, Pallor, Diaphoresis Neurological: Denies: Confusion, Dizziness, Headache, Seizure, Syncope, Trouble Speaking, Difficulty Walking Psychiatric: Denies: Agitation, Anxiety, Confusion ED EXAM, GENERAL - Physical Exam Exam: See Below Exam Limited By: No Limitations General Appearance: Alert, WD/WN, No Apparent Distress Eye Exam: Bilateral Eye: EOMI, Normal Inspection, PERRL Ears: Normal External Exam, Hearing Grossly Normal Nose: Normal Inspection, No Blood Throat/Mouth: Normal Inspection, Normal Lips, Normal Voice, No Airway Compromise Head: Atraumatic, Normocephalic Neck: Normal Inspection, Full Range of Motion Respiratory/Chest: No Accessory Muscle Use, Decreased Breath Sounds (mildly), Ra les (slight in bases; mostly clear) Cardiovascular: Normal Peripheral Pulses, Regular Rate, Rhythm, No Murmur Peripheral Pulses: 2+: Radial (L), Radial (R), Posterior Tibial (L), Posterior Tibial (R) GI/Abdominal: Normal Bowel Sounds, Soft, Non-Tender, No Organomegaly, No Distention, No Abnormal Bruit Back Exam: Normal Inspection, Full Range of Motion. No: CVA Tenderness (L), CVA Tenderness (R) Extremities: Normal Inspection, Normal Range of Motion Neurological: Alert, Oriented, Normal Cognition, No Motor/Sensory Deficits Psychiatric: Normal Affect, Normal Mood Skin Exam: Warm, Dry, Intact, Normal Color, No Rash Course - Vital Signs Last Recorded V/S: Last Vital Signs Temp 97 F 03/06/21 16:46 Pulse 89 03/06/21 17:33 Resp 20 03/06/21 17:33 BP 135/74 03/06/21 17:33 Pulse Ox 98 03/06/21 17:33 - Orders/Labs/Meds Orders: Active Orders 24 hr Category Date Time Status RT Aerosol Therapy [RC] ASDIRECTED Care 03/06/21 17:14 Ordered CBC WITH AUTO DIFF [HEME] Stat Lab 03/06/21 16:50 Received MANUAL DIFFERENTIAL QA/NC [HEME] Stat Lab 03/06/21 16:50 Results Labs: Laboratory Tests 03/06/21 03/06/21 Range/Units 16:50 16:50 WBC 4.90 L (5.00-10.00) 10^3/uL RBC 4.41 L (4.50-6.00) 10^6/uL Hgb 15.4 (13.0-17.0) g/dL Hct 45.0 (40.0-52.0) % MCV 102.0 H (82.0-92.0) fL MCH 34.9 H (27.0-31.0) pg MCHC 34.2 (32.0-36.0) g/dL RDW 12.8 (11.5-14.5) % Plt Count 120 L (150-400) 10^3/uL MPV 11.9 H (7.4-10.4) fL Add Manual Diff Yes Platelet Estimate Decreased Macrocytosis Rare Sodium 136 D (136-145) mmol/L Potassium 3.9 (3.3-5.3) mmol/L Chloride 100 (98-115) mmol/L Carbon Dioxide 26.8 (21.0-32.0) mmol/L Anion Gap 13.1 (5-15) mmol/L BUN 7 (6-25) mg/dL Creatinine 0.97 (0.51-1.17) mg/dL Est Cr Clr Drug Dosing 76.94 mL/min Estimated GFR (MDRD) > 60 mL/min Glucose 77 (75 - 99) mg/dL Calcium 8.8 (8.7-10.3) mg/dL Total Bilirubin 1.0 (0.2-1.0) mg/dL AST 21 (15-37) U/L ALT 31 (12-78) U/L Alkaline Phosphatase 69 (46-116) IU/L Total Protein 7.7 (6.4-8.2) g/dL Albumin 3.95 (3.00-4.80) g/dL Meds: Medications Discontinued Medications Generic Name Dose Route Start Last Admin Trade Name Freq PRN Reason Stop Dose Admin Albuterol/Ipratropium 3 ml 03/06/21 17:13 03/06/21 17:17 Albuterol/Ipratropium 3.0-0.5 Mg/3 Ml Neb Soln NEB 03/06/21 17:14 3 ml ONETIME ONE Administration Prednisone 80 mg 03/06/21 17:44 03/06/21 17:50 Prednisone 20 Mg Tab PO 03/06/21 17:45 40 mg ONETIME ONE Administration - Re-Assessments/Exams Free Text/Narrative Re-Assessment/Exam: 03/06/21 17:25 CXR shows some pulmonary hyperinflation but no acute pathology. 03/06/21 17:56 Breathing is improved clinically and per patient following the DuoNeb. We discussed findings and expectations. I encouraged him to try to quit smoking and to continue to look for medical insurance options. He says he hasn't seen his PCP for awhile due to loss of insurance. We gave him prednisone 40 mg now and sent 40 mg home along with an Rx for 5 additional days. Also DuoNeb vials to use prn in his nebulizer. Patient is improved and discharged to home in stable condition. Departure - Departure Time of Disposition: 17:51 Disposition: Home, Self-Care 01 Condition: Good Clinical Impression: Chronic dyspnea, Cigarette smoker - Discharge Information Instructions: Steps to Quit Smoking, [id number] Referrals: Ceci Velasquez PA-C [Primary Care Provider] - Forms: ED Department Discharge Additional Instructions: Drink 8 cups of water daily. Take the prednisone as directed. Use the DuoNeb in your nebulizer as directed with episodes of shortness of breath. Try to quit smoking. Continue to pursue avenues for medical insurance and schedule follow up with your PCP as soon as possible. Sepsis Event Note (ED) - Evaluation Sepsis Screening Result: No Definite Risk - Focused Exam Vital Signs: Vital Signs Temp Pulse Resp BP Pulse Ox Pulse Ox 03/06/21 17:33 89 20 135/74 98 03/06/21 17:17 78 97 03/06/21 17:00 81 19 151/86 H 97 03/06/21 16:46 97 F 85 19 148/84 H 97 - My Orders Last 24 Hours: My Active Orders 03/06/21 16:50 CBC WITH AUTO DIFF [HEME] Stat MANUAL DIFFERENTIAL QA/NC [HEME] Stat 03/06/21 17:14 RT Aerosol Therapy [RC] ASDIRECTED - Assessment/Plan Last 24 Hours: My Active Orders 03/06/21 16:50 CBC WITH AUTO DIFF [HEME] Stat MANUAL DIFFERENTIAL QA/NC [HEME] Stat 03/06/21 17:14 RT Aerosol Therapy [RC] ASDIRECTED
[2021-03-06 17:46] LABS: SODIUM,NA 136 mmol/L (136-145)
[2021-03-06 17:47] LABS: ANION GAP 13.1 mmol/L (5-15); CHLORIDE,CL 100 mmol/L (98-115)
[2021-03-06] MEDS: predniSONE 20 MG Tab PO ONE (17:50)
== END 2021-03-06 18:04 | disposition home or self-care (01) ==
LOC: KA.ED 16:41
DX: R06.02 Shortness of breath (principal); F17.210 Nicotine dependence, cigarettes, uncomplicated; I10 Essential (primary) hypertension; I25.2 Old myocardial infarction; Z79.899 Other long term (current) drug therapy; Z88.5 Allergy status to narcotic agent; Z88.0 Allergy status to penicillin; Z79.82 Long term (current) use of aspirin; Z72.0 Tobacco use; Z95.5 Presence of coronary angioplasty implant and graft
CPT/HCPCS: 36415; 71046; 80053; 85025; 94640; 99284; 99285-25; J7512; J7620-GY

== ENCOUNTER 2024-12-13 21:14 | Emergency (ER) | payer OTHER | END 2024-12-13 22:11 | disposition home or self-care (01) | LOC: KA.ED 21:14 | DX: M53.3 Sacrococcygeal disorders, not elsewhere classified (principal); I25.2 Old myocardial infarction; I10 Essential (primary) hypertension; F17.210 Nicotine dependence, cigarettes, uncomplicated; Z88.5 Allergy status to narcotic agent; Z88.0 Allergy status to penicillin; Z79.82 Long term (current) use of aspirin; Z79.899 Other long term (current) drug therapy; W00.0XXA Fall on same level due to ice and snow, initial encounter | CPT/HCPCS: 72220; 99283; 99284 ==